=== PATIENT | female | born 1950 | race Caucasian/White ===

== ENCOUNTER → 2018-02-15 09:47 | Outpatient (CLI) | payer MEDICARE, SELFPAY ==
--- NOTE | 2018-02-15 | DI.RAD.S_ITS ---
This blank DEXA report has been sent in error by the PACS system. The correct and complete report will be forthcoming in 1-2 days. Thank you for your patience and understanding. Dictated by: Kun Warren M.D. on 02/15/2018 at 11:57 Approved by: Kun Warren M.D. on 02/15/2018 at 11:57
== END ==
DX: M85.88 Other specified disorders of bone density and structure, other site (principal); E07.9 Disorder of thyroid, unspecified; Z78.0 Asymptomatic menopausal state
CPT/HCPCS: 77080

== ENCOUNTER → 2018-02-25 09:22 | Outpatient (CLI) | payer MEDICARE, SELFPAY ==
--- NOTE | 2018-02-25 09:24 | DI.MG.S_ITS ---
BILATERAL DIGITAL SCREENING MAMMOGRAM 3D/2D WITH CAD: 02/25/2018 CLINICAL: Routine screening. Family history of breast cancer. Comparison is made to exams dated: 11/02/2012 mammogram, 05/10/2014 mammogram, 07/16/2011 mammogram, 06/01/2010 mammogram, 05/30/2009 mammogram, and 05/24/2008 mammogram - [facility]. There are scattered fibroglandular elements in both breasts. Current study was also evaluated with a Computer Aided Detection (CAD) system. There is a new 0.6 cm oval mass in the left breast central to the nipple anterior depth, which may be more lateral toward the 3 o'clock position on LCC view. No other significant masses, calcifications, or other findings are seen in either breast. IMPRESSION: INCOMPLETE: NEEDS ADDITIONAL IMAGING EVALUATION The new 0.6 cm oval mass in the left breast is indeterminate. Additional views with possible ultrasound are recommended. This exam was interpreted at Station ID: [id number]. NOTE: For mammograms, a report in lay terms will be sent to the patient. Approximately 15% of breast malignancies will not be visualized mammographically. In the management of a palpable breast mass, a negative mammogram must not discourage biopsy of a clinically suspicious lesion. Electronically Signed By: Jai Claros M.D. ecl/:03/01/2018 18:31:19 letter sent: Additional Imaging Needed ACR BI-RADS Category 0: Incomplete [id number]
== END ==
DX: Z12.31 Encounter for screening mammogram for malignant neoplasm of breast (principal); Z80.3 Family history of malignant neoplasm of breast
CPT/HCPCS: 77063; 77067

== ENCOUNTER → 2018-03-16 14:39 | Outpatient (CLI) | payer OTHER, SELFPAY ==
--- NOTE | 2018-03-16 12:00 | DI.US.S_ITS ---
Patient Name: TONY PANDEY date: 1950 Sex: F Attending Physician: Kevin Champagne Indications: Date: 03/16/2018 16:38 At the request of: DOMONIQUE CHAMPAGNE Procedure: US breast LT limited ULTRASOUND OF LEFT BREAST: 03/16/2018 CLINICAL: Patient returns for additional imaging over a suspected mass in the left breast. Comparison is made to exams dated: 03/16/2018 mammogram, 02/25/2018 mammogram, and 05/10/2014 mammogram - [facility]. Color flow ultrasound of the left breast was performed. Jimenez scale images of the real-time examination were reviewed. There is an oval mass with a circumscribed margin in the left breast at 3 o' clock anterior depth 3 cm from the nipple. This oval mass displays internal echoes. This correlates with mammography findings. Color flow imaging demonstrates that there is no vascularity present. IMPRESSION: PROBABLY BENIGN The oval mass in the left breast likely represents clustered cysts, a complicated cyst, or focal ductal dilatation and is probably benign. A follow-up mammogram and an ultrasound in 6 months is recommended to demonstrate stability. This exam was interpreted at Station ID: [id number]. Electronically Signed By: Lázaro Ford M.D. aty/:03/16/2018 17:15:23 letter sent: Followup Recommended Ultrasound BI-RADS: 3 Probably benign
--- NOTE | 2018-03-16 13:15 | DI.MG.S_ITS ---
Patient Name: TONY PANDEY date: 1950 Sex: F Attending Physician: Kevin Champagne Indications: Date: 03/16/2018 14:56 At the request of: DOMONIQUE CHAMPAGNE Procedure: MM special view LT UNILATERAL LEFT DIGITAL DIAGNOSTIC MAMMOGRAM 3D/2D WITH ADDITIONAL VIEWS: 03/16/2018 CLINICAL: Additional evaluation requested from prior study. Family history of breast cancer. No history of abnormal nipple discharge. Comparison is made to exams dated: 02/25/2018 mammogram, 05/10/2014 mammogram, and 11/02/2012 mammogram - [facility]. There are scattered fibroglandular elements in left breast. There is an oval equal density mass with a circumscribed margin in the left breast central to the nipple anterior depth 4 cm from the nipple. This is seen in additional views. This is not significantly changed. No other significant masses or calcifications are seen in the breast. IMPRESSION: INCOMPLETE: NEEDS ADDITIONAL IMAGING EVALUATION The oval equal density mass in the left breast is indeterminate. An ultrasound is recommended and will follow immediately after this exam. This exam was interpreted at Station ID: [id number]. NOTE: For mammograms, a report in lay terms will be sent to the patient. Approximately 15% of breast malignancies will not be visualized mammographically. In the management of a palpable breast mass, a negative mammogram must not discourage biopsy of a clinically suspicious lesion. Electronically Signed By: Lázaro Ford M.D. aty/:03/16/2018 17:09:12 ACR BI-RADS Category 0: Incomplete [id number]
== END ==
DX: R92.8 Other abnormal and inconclusive findings on diagnostic imaging of breast (principal); N63.20 Unspecified lump in the left breast, unspecified quadrant; Z80.3 Family history of malignant neoplasm of breast
CPT/HCPCS: 76642; 77065; G0279

== ENCOUNTER 2018-06-20 12:22 | Emergency (ER) | payer OTHER, SELFPAY ==
[2018-06-20 12:30] VITALS: BP 139/70; PULSE 89; RESP 18; TEMP 37.2; O2SAT 93
--- NOTE | 2018-06-20 12:38 | ED.UPPEXIN ---
HPI - Extremity Injury (Upper) <Randee Celaya PA-C - Last Filed: 06/20/18 19:31> General Chief Complaint: Extremity Injury, Upper Stated Complaint: FALL LEFT ARM INJURY Time Seen by Provider: 06/20/18 12:50 Source: patient Mode of arrival: ambulatory Limitations: physical limitation History of Present Illness HPI narrative: This 68-year-old female tripped over a metal plate in the street and fell on to her outstretched hands to, taking most of the brunt of the impact on the right hand. She is right-handed. She states that she has pain from the shoulder down and cannot move shoulder secondary to pain. she does not have any numbness. She denies hitting her head or any other injury, states she knew what had happened right away and had pain right away. Related Data Home Medications Medication Instructions Recorded Confirmed levothyroxine [Synthroid] 100 mcg PO DAILY #0 10/12/08 06/20/18 bupropion HCl 150 mg PO DAILY 06/20/18 06/20/18 lisinopril 20 mg PO DAILY 06/20/18 06/20/18 simvastatin 20 mg PO QPM 06/20/18 06/20/18 Previous Rx's Medication Instructions Recorded hydrocodone-acetaminophen [[place]] 1 tab PO Q4-6H PRN #14 tab 06/20/18 Allergies Allergy/AdvReac Type Severity Reaction Status Date / Time No Known Drug Allergies Allergy Verified 06/20/18 12:32 Review of Systems <Randee Celaya PA-C - Last Filed: 06/20/18 19:31> Review of Systems ROS Unobtainable: All systems reviewed & are unremarkable except as noted in HPI and below PFSH <Randee Celaya PA-C - Last Filed: 06/20/18 19:31> Medical History (Updated 06/20/18 @ 14:38 by Randee Celaya PA-C) No pertinent family history (Chronic) Depression (Chronic) Hypothyroidism (Chronic) HTN (hypertension) (Chronic) Hyperlipidemia (Chronic) Surgical History (Updated 06/20/18 @ 13:01 by Randee Celaya PA-C) No pertinent past surgical history (Chronic) Social History Smoking Status: Never smoker Social History Smoking Status: Never smoker Exam <Randee Celaya PA-C - Last Filed: 06/20/18 19:31> Narrative Exam Narrative: GENERAL APPEARANCE: Patient sitting comfortably, in no distress. LUNGS: Clear to auscultation bilaterally. HEART: Rate and rhythm regular without murmur, normal S1 and S2, no S3 or S4. MUSCULOSKELETAL: Patient sits with the right upper extremity abducted holding her elbow. Shoulders appear symmetric. she is exquisitely over the collarbone and right lateral shoulder to the proximal border of the humerus. No tenderness over the remainder of the upper arm or elbow. No tenderness over the proximal forearm. Moderate tenderness over the distal forearm and mild tenderness over the radial side of the wrist. She will not move the shoulder secondary to tenderness. She is able to pronate and supinate the elbow and will flex slightly. She is able to move the wrist and fingers. NEUROVASCULAR: Right hand fingers are warm and pink with brisk cap refill, sensation grossly intact DERMATOLOGIC: No ecchymoses or abrasions over the right upper extremity or shoulder Initial Vital Signs Initial Vital Signs: Vital Signs Temperature 98.9 F 06/20/18 12:30 Pulse Rate 89 06/20/18 12:30 Respiratory Rate 18 06/20/18 12:30 Blood Pressure 139/70 06/20/18 12:30 Pulse Oximetry 93 06/20/18 12:30 <Mel Pastrana DO - Last Filed: 06/23/18 20:42> Initial Vital Signs Initial Vital Signs: Vital Signs Temperature 98.9 F 06/20/18 12:30 Pulse Rate 89 06/20/18 12:30 Respiratory Rate 18 06/20/18 12:30 Blood Pressure 139/70 06/20/18 12:30 Pulse Oximetry 93 06/20/18 12:30 Course <Randee Celaya PA-C - Last Filed: 06/20/18 19:31> Additional Information: I spoke with Dr. Berrios, on-call for Orthopedics. He evaluated x-rays and advised shoulder likely somewhat subluxed which is common with this type of fracture. He advised sling and follow-up with Orthopedics. Patient was given pain medication and advised to see PCP in a day or 2 to see if any changes need to be made there, continue the sling and she will call Orthopedics to schedule follow-up. Orders Ordered: Discontinued Medications Hydrocodone Bitart/Acetaminophen ([place] 5/325) 2 tab PO NOW ONE Stop: 06/20/18 12:51 Last Admin: 06/20/18 12:58 Dose: 2 tab Ibuprofen (Advil) 800 mg PO NOW ONE Stop: 06/20/18 12:51 Last Admin: 06/20/18 12:59 Dose: 800 mg Vital Signs - 8 hr 06/20/18 12:30 06/20/18 13:20 06/20/18 14:08 Temperature 98.9 F Pulse Rate 89 70 Pulse Rate [Right Radial] 78 Respiratory Rate 18 16 Blood Pressure 139/70 Blood Pressure [Left Arm] 157/101 H Pulse Oximetry 93 98 <Mel Pastrana DO - Last Filed: 06/23/18 20:42> Orders Ordered: Discontinued Medications Hydrocodone Bitart/Acetaminophen ([place] 5/325) 2 tab PO NOW ONE Stop: 06/20/18 12:51 Last Admin: 06/20/18 12:58 Dose: 2 tab Ibuprofen (Advil) 800 mg PO NOW ONE Stop: 06/20/18 12:51 Last Admin: 06/20/18 12:59 Dose: 800 mg Vital Signs - 8 hr 06/20/18 12:30 06/20/18 13:20 06/20/18 14:08 Temperature 98.9 F Pulse Rate 89 70 Pulse Rate [Right Radial] 78 Respiratory Rate 18 16 Blood Pressure 139/70 Blood Pressure [Left Arm] 157/101 H Pulse Oximetry 93 98 MDM - Extremity Injury (Upper) <Randee Celaya PA-C - Last Filed: 06/20/18 19:31> Imaging Data wrist: Radiologist's impression: 15 Randee Celaya PA-C Find Patient Imaging Tamie Little L 68 F 1950 ACTIVITY DATE EXAM STATUS AUTHOR 06/20/18 12:57 Signed Esther John 06/20/18 12:[address] [address] XRay Report Signed Patient: Tamie Little LMR#: [id number] : 3Acct:[id number] Age/Sex: 68 / FDate of Service: 06/20/18 Loc: ED Accession Number: [id number] Procedure: XR wrist RT 2V Ordering Provider: Randee Celaya P.A-C PROCEDURE: XR WRIST RT 2V INDICATIONS: fall, pain, more lateral TECHNIQUE: 2 views of the wrist were acquired. COMPARISON: None. FINDINGS: Bones: No displaced fracture or dislocation is appreciated involving the osseous structures of the right wrist. There are mild to moderate degenerative changes involving the basal joint of the thumb. Bony alignment of the wrist is within normal limits. Soft tissues: No suspicious soft tissue calcifications. Soft tissue swelling about the wrist may be present. IMPRESSION: No displaced fractures of the wrist are evident. Dictated by: Juan David Williamson M.D. on 06/20/2018 at 12:50 Approved by: Juan David Williamson M.D. on 06/20/2018 at 12:51 Discharge Plan Departure Patient Disposition: Home Clinical Impression: Fracture, humerus closed Qualifiers: Encounter type: initial encounter Humerus Location: surgical neck Fracture morphology: unspecified fracture morphology Fracture alignment: displaced Laterality: right Qualified Code(s): S42.211A - Unspecified displaced fracture of surgical neck of right humerus, initial encounter for closed fracture Discharge Date/Time: 06/20/18 14:47 Interventions: ED Discharge Assessment Last Done: 06/20/18 14:46 Instructions: DI for Humeral Fracture Activity Restrictions/Additional Instructions: You have a break your shoulder where the the ball and socket connect to the upper arm bone (the humerus). The orthopedic doctor on-call looked at your x-rays and advised that many times these heal and align reasonably well without surgery. He would like you to keep the arm in a sling as we gave you, then they want to see you in a week to 10 days to recheck. Please call his office either later this afternoon or 1st thing tomorrow morning and let them know Dr. Berrios reviewed your films from the emergency room and wants you to set up a follow-up for shoulder fracture. You should return to the ED right away if you have acutely worsening symptoms, i.e. severe pain, difficulty with sensation or weakness or color changes in your hand and fingers suddenly. Otherwise, please continue ibuprofen for pain as you would normally take at home, every 8 hours, and you can also take the prescription hydrocodone/acetaminophen on top of this the as needed. Remember that the the hydrocodone/acetaminophen can make you sleepy and not to drive when you take it. Please follow-up with your PCP in the next day or 2 to see how that is working for you and whether you need any changes. Prescriptions: New hydrocodone-acetaminophen [[place]] 5-325 mg tablet 1 tab PO Q4-6H PRN (Reason: acute shoulder fracture pain) Qty: 14 RF: 0 No Action levothyroxine [Synthroid] 100 mcg Tablet 100 mcg PO DAILY Qty: 0 RF: 0 lisinopril 20 mg tablet 20 mg PO DAILY RF: 0 simvastatin 20 mg tablet 20 mg PO QPM RF: 0 bupropion HCl 150 mg tablet extended release 24 hr 150 mg PO DAILY RF: 0 Referrals: Jill Renee PALiamC [Primary Care Provider] - Louis Berrios MD [Physician] - <Mel Pastrana DO - Last Filed: 06/23/18 20:42> Cosign ED Attending Cosleslyeature Attestation: I was immediately available in the department for consultation. This documentation has been reviewed and I agree with assessment and plan. Supervised by Mel Pastrana DO
--- NOTE | 2018-06-20 12:41 | ED_ITS ---
HPI - Extremity Injury (Upper) <Randee Celaya PA-C - Last Filed: 06/20/18 19:31> General Chief Complaint: Extremity Injury, Upper Stated Complaint: FALL LEFT ARM INJURY Time Seen by Provider: 06/20/18 12:50 Source: patient Mode of arrival: ambulatory Limitations: physical limitation History of Present Illness HPI narrative: This 68-year-old female tripped over a metal plate in the street and fell on to her outstretched hands to, taking most of the brunt of the impact on the right hand. She is right-handed. She states that she has pain from the shoulder down and cannot move shoulder secondary to pain. she does not have any numbness. She denies hitting her head or any other injury, states she knew what had happened right away and had pain right away. Related Data Home Medications Medication Instructions Recorded Confirmed levothyroxine [Synthroid] 100 mcg PO DAILY #0 10/12/08 06/20/18 bupropion HCl 150 mg PO DAILY 06/20/18 06/20/18 lisinopril 20 mg PO DAILY 06/20/18 06/20/18 simvastatin 20 mg PO QPM 06/20/18 06/20/18 Previous Rx's Medication Instructions Recorded hydrocodone-acetaminophen [[place]] 1 tab PO Q4-6H PRN #14 tab 06/20/18 Allergies Allergy/AdvReac Type Severity Reaction Status Date / Time No Known Drug Allergies Allergy Verified 06/20/18 12:32 Review of Systems <Randee Celaya PA-C - Last Filed: 06/20/18 19:31> Review of Systems ROS Unobtainable: All systems reviewed & are unremarkable except as noted in HPI and below PFSH <Randee Celaya PA-C - Last Filed: 06/20/18 19:31> Medical History (Updated 06/20/18 @ 14:38 by Randee Celaya PA-C) No pertinent family history (Chronic) Depression (Chronic) Hypothyroidism (Chronic) HTN (hypertension) (Chronic) Hyperlipidemia (Chronic) Surgical History (Updated 06/20/18 @ 13:01 by Randee Celaya PA-C) No pertinent past surgical history (Chronic) Social History Smoking Status: Never smoker Social History Smoking Status: Never smoker Exam <Randee Celaya PA-C - Last Filed: 06/20/18 19:31> Narrative Exam Narrative: GENERAL APPEARANCE: Patient sitting comfortably, in no distress. LUNGS: Clear to auscultation bilaterally. HEART: Rate and rhythm regular without murmur, normal S1 and S2, no S3 or S4. MUSCULOSKELETAL: Patient sits with the right upper extremity abducted holding her elbow. Shoulders appear symmetric. she is exquisitely over the collarbone and right lateral shoulder to the proximal border of the humerus. No tenderness over the remainder of the upper arm or elbow. No tenderness over the proximal forearm. Moderate tenderness over the distal forearm and mild tenderness over the radial side of the wrist. She will not move the shoulder secondary to tenderness. She is able to pronate and supinate the elbow and will flex slightly. She is able to move the wrist and fingers. NEUROVASCULAR: Right hand fingers are warm and pink with brisk cap refill, sensation grossly intact DERMATOLOGIC: No ecchymoses or abrasions over the right upper extremity or shoulder Initial Vital Signs Initial Vital Signs: Vital Signs Temperature 98.9 F 06/20/18 12:30 Pulse Rate 89 06/20/18 12:30 Respiratory Rate 18 06/20/18 12:30 Blood Pressure 139/70 06/20/18 12:30 Pulse Oximetry 93 06/20/18 12:30 <Mel Pastrana DO - Last Filed: 06/23/18 20:42> Initial Vital Signs Initial Vital Signs: Vital Signs Temperature 98.9 F 06/20/18 12:30 Pulse Rate 89 06/20/18 12:30 Respiratory Rate 18 06/20/18 12:30 Blood Pressure 139/70 06/20/18 12:30 Pulse Oximetry 93 06/20/18 12:30 Course <Randee Celaya PA-C - Last Filed: 06/20/18 19:31> Additional Information: I spoke with Dr. Berrios, on-call for Orthopedics. He evaluated x-rays and advised shoulder likely somewhat subluxed which is common with this type of fracture. He advised sling and follow-up with Orthopedics. Patient was given pain medication and advised to see PCP in a day or 2 to see if any changes need to be made there, continue the sling and she will call Orthopedics to schedule follow-up. Orders Ordered: Discontinued Medications Hydrocodone Bitart/Acetaminophen ([place] 5/325) 2 tab PO NOW ONE Stop: 06/20/18 12:51 Last Admin: 06/20/18 12:58 Dose: 2 tab Ibuprofen (Advil) 800 mg PO NOW ONE Stop: 06/20/18 12:51 Last Admin: 06/20/18 12:59 Dose: 800 mg Vital Signs - 8 hr 06/20/18 12:30 06/20/18 13:20 06/20/18 14:08 Temperature 98.9 F Pulse Rate 89 70 Pulse Rate [Right Radial] 78 Respiratory Rate 18 16 Blood Pressure 139/70 Blood Pressure [Left Arm] 157/101 H Pulse Oximetry 93 98 <Mel Pastrana DO - Last Filed: 06/23/18 20:42> Orders Ordered: Discontinued Medications Hydrocodone Bitart/Acetaminophen ([place] 5/325) 2 tab PO NOW ONE Stop: 06/20/18 12:51 Last Admin: 06/20/18 12:58 Dose: 2 tab Ibuprofen (Advil) 800 mg PO NOW ONE Stop: 06/20/18 12:51 Last Admin: 06/20/18 12:59 Dose: 800 mg Vital Signs - 8 hr 06/20/18 12:30 06/20/18 13:20 06/20/18 14:08 Temperature 98.9 F Pulse Rate 89 70 Pulse Rate [Right Radial] 78 Respiratory Rate 18 16 Blood Pressure 139/70 Blood Pressure [Left Arm] 157/101 H Pulse Oximetry 93 98 MDM - Extremity Injury (Upper) <Randee Celaya PA-C - Last Filed: 06/20/18 19:31> Imaging Data wrist: Radiologist's impression: 15 Randee Celaya PA-C Find Patient Imaging Tamie Little L 68 F 1950 ACTIVITY DATE EXAM STATUS AUTHOR 06/20/18 12:57 Signed Esther John 06/20/18 12:[address] [address] XRay Report Signed Patient: Tamie Little LMR#: [id number] : 3Acct:[id number] Age/Sex: 68 / FDate of Service: 06/20/18 Loc: ED Accession Number: [id number] Procedure: XR wrist RT 2V Ordering Provider: Randee Celaya P.A-C PROCEDURE: XR WRIST RT 2V INDICATIONS: fall, pain, more lateral TECHNIQUE: 2 views of the wrist were acquired. COMPARISON: None. FINDINGS: Bones: No displaced fracture or dislocation is appreciated involving the osseous structures of the right wrist. There are mild to moderate degenerative changes involving the basal joint of the thumb. Bony alignment of the wrist is within normal limits. Soft tissues: No suspicious soft tissue calcifications. Soft tissue swelling about the wrist may be present. IMPRESSION: No displaced fractures of the wrist are evident. Dictated by: Juan David Williamson M.D. on 06/20/2018 at 12:50 Approved by: Juan David Williamson M.D. on 06/20/2018 at 12:51 Discharge Plan Departure Patient Disposition: Home Clinical Impression: Fracture, humerus closed Qualifiers: Encounter type: initial encounter Humerus Location: surgical neck Fracture morphology: unspecified fracture morphology Fracture alignment: displaced Laterality: right Qualified Code(s): S42.211A - Unspecified displaced fracture of surgical neck of right humerus, initial encounter for closed fracture Discharge Date/Time: 06/20/18 14:47 Interventions: ED Discharge Assessment Last Done: 06/20/18 14:46 Instructions: DI for Humeral Fracture Activity Restrictions/Additional Instructions: You have a break your shoulder where the the ball and socket connect to the upper arm bone (the humerus). The orthopedic doctor on-call looked at your x- rays and advised that many times these heal and align reasonably well without surgery. He would like you to keep the arm in a sling as we gave you, then they want to see you in a week to 10 days to recheck. Please call his office either later this afternoon or 1st thing tomorrow morning and let them know Dr. Berrios reviewed your films from the emergency room and wants you to set up a follow-up for shoulder fracture. You should return to the ED right away if you have acutely worsening symptoms, i.e. severe pain, difficulty with sensation or weakness or color changes in your hand and fingers suddenly. Otherwise, please continue ibuprofen for pain as you would normally take at home, every 8 hours, and you can also take the prescription hydrocodone/acetaminophen on top of this the as needed. Remember that the the hydrocodone/acetaminophen can make you sleepy and not to drive when you take it. Please follow-up with your PCP in the next day or 2 to see how that is working for you and whether you need any changes. Prescriptions: New hydrocodone-acetaminophen [[place]] 5-325 mg tablet 1 tab PO Q4-6H PRN (Reason: acute shoulder fracture pain) Qty: 14 RF: 0 No Action levothyroxine [Synthroid] 100 mcg Tablet 100 mcg PO DAILY Qty: 0 RF: 0 lisinopril 20 mg tablet 20 mg PO DAILY RF: 0 simvastatin 20 mg tablet 20 mg PO QPM RF: 0 bupropion HCl 150 mg tablet extended release 24 hr 150 mg PO DAILY RF: 0 Referrals: Jill Renee PALiamC [Primary Care Provider] - Louis Berrios MD [Physician] - <Mel Pastrana DO - Last Filed: 06/23/18 20:42> Cosign ED Attending Cosleslyeature Attestation: I was immediately available in the department for consultation. This documentation has been reviewed and I agree with assessment and plan. Supervised by Mel Pastrana DO
--- NOTE | 2018-06-20 12:57 | DI.RAD.S_ITS ---
PROCEDURE: XR WRIST RT 2V INDICATIONS: fall, pain, more lateral TECHNIQUE: 2 views of the wrist were acquired. COMPARISON: None. FINDINGS: Bones: No displaced fracture or dislocation is appreciated involving the osseous structures of the right wrist. There are mild to moderate degenerative changes involving the basal joint of the thumb. Bony alignment of the wrist is within normal limits. Soft tissues: No suspicious soft tissue calcifications. Soft tissue swelling about the wrist may be present. IMPRESSION: No displaced fractures of the wrist are evident. Dictated by: Juan David Williamson M.D. on 06/20/2018 at 12:50 Approved by: Juan David Williamson M.D. on 06/20/2018 at 12:51
--- NOTE | 2018-06-20 12:57 | DI.RAD.S_ITS ---
PROCEDURE: XR SHOULDER RT MIN 2V INDICATIONS: fall, pain TECHNIQUE: 3 views of the shoulder were acquired. COMPARISON: None. FINDINGS: Bones: There is a moderately displaced fracture of the humeral neck. Soft tissues: No suspicious soft tissue calcifications. IMPRESSION: Moderately displaced humeral neck fracture. Dictated by: Esther John M.D. on 06/20/2018 at 13:24 Approved by: Esther John M.D. on 06/20/2018 at 13:25
[2018-06-20] MEDS: HYDROCODONE/ACET 5/325 TABLET 2 TAB PO (12:58)
[2018-06-20] MEDS: IBUPROFEN 400 MG TABLET 800 MG PO (12:59)
[2018-06-20 13:20] VITALS: PULSE 78
--- NOTE | 2018-06-20 13:21 | PC.NURSE ---
Movement limited by pain, full grasp of hand.
[2018-06-20 14:08] VITALS: BP 157/101; PULSE 70; RESP 16; O2SAT 98
== END 2018-06-20 14:47 | disposition home or self-care (01) ==
PROVIDERS: Emergency Provider Internal Medicine
DX: S42.211A Unspecified displaced fracture of surgical neck of right humerus, initial encounter for closed fracture (principal); W19.XXXA Unspecified fall, initial encounter
CPT/HCPCS: 73030; 73100; 99282; 99283

== ENCOUNTER → 2018-08-02 11:51 | Outpatient (CLI) | payer OTHER, SELFPAY ==
--- NOTE | 2018-08-02 | DI.RAD.S_ITS ---
PROCEDURE: XR CHEST 2V INDICATIONS: COUGH X 2 MONTHS TECHNIQUE: 2 views of the chest were acquired. COMPARISON: None. FINDINGS: Surgical changes and devices: None. Lungs and pleura: Lungs are clear. No pleural effusions or pneumothorax. Mediastinum: Mediastinal contours are normal. Heart size is normal. Bones and chest wall: No suspicious bony abnormalities. Soft tissues appear unremarkable. IMPRESSION: Normal for age, source of current cough symptoms is not seen. Dictated by: Luis Magallanes M.D. on 08/02/2018 at 12:19 Approved by: Luis Magallanes M.D. on 08/02/2018 at 12:19
== END ==
DX: R05 Cough (principal)
CPT/HCPCS: 71046

== ENCOUNTER → 2018-10-03 09:10 | Outpatient (CLI) | payer OTHER, SELFPAY ==
[2018-10-03 10:36] LABS: BUN Creatinine Ratio 21.4 (6-22); Blood Urea Nitrogen 15 mg/dL (7-17); Calcium 9.4 mg/dL (8.4-10.2); Carbon Dioxide 24 mmol/L (22-32); Chloride 103 mmol/L (98-107); Estimated Glomerular Filt Rate > 60.0 mL/min (>60); Glucose 94 mg/dL (80-110); HEMOLYSIS < 15 (0-50); Potassium 4.4 mmol/L (3.4-5.1); Sodium 139 mmol/L (137-145)
== END ==
PROVIDERS: Visit Provider Nurse Practitioner
DX: I10 Essential (primary) hypertension (principal)
CPT/HCPCS: 36415; 80048

== ENCOUNTER → 2018-11-08 09:00 | Outpatient (CLI) | payer OTHER, SELFPAY ==
--- NOTE | 2018-11-08 | DI.US.S_ITS ---
LIMITED ULTRASOUND OF LEFT BREAST: 11/08/2018 CLINICAL: 6 month follow-up. Comparison is made to exams dated: 11/08/2018 mammogram, 03/16/2018 ultrasound, 03/16/2018 mammogram, 02/25/2018 mammogram, 05/10/2014 mammogram, and 11/02/2012 mammogram - [facility]. Real-time ultrasound of the left breast 12-4 o'clock region was performed. Jimenez scale images of the real-time examination were reviewed. There is a 0.8 cm x 0.8 cm x 0.5 cm minimally complicated cyst with a septated internal wall in the left breast at 4 o'clock anterior depth. This abnormality is increased in size. There is an adjacent 5 mm complicated cyst which is stable. A new cluster of microcysts is seen at the 12:00 position measuring 8 mm in greatest dimention. This corresponds to the mammographic finding. IMPRESSION: PROBABLY BENIGN The 0.8 cm x 0.8 cm x 0.5 cm minimally complicated cyst in the left breast has enlarged but is probably benign. Other adjacent tissue appears stable. New 12 :00 microcyst cluster corresponds to mammographic finding and may indicate apocrine metaplasia. Follow-up mammogram and ultrasound in 6 months is recommended. Findings and recommendations were conveyed to the patient at time of exam. This exam was interpreted at Station ID: [id number]. Electronically Signed By: Rose garcia/:11/08/2018 16:13:09 letter sent: Followup Recommended Ultrasound BI-RADS: 3 Probably benign
--- NOTE | 2018-11-08 | DI.MG.S_ITS ---
UNILATERAL LEFT DIGITAL DIAGNOSTIC MAMMOGRAM 3D/2D: 11/08/2018 CLINICAL: Patient returns for a 6 month follow up of the left breast. Comparison is made to exams dated: 03/16/2018 mammogram, 02/25/2018 mammogram, and 05/10/2014 mammogram - [facility]. There are scattered fibroglandular elements in left breast. There is an oval mass in the left breast at 4 o'clock anterior depth. This is seen in additional views. This is slightly increased in size. There also is a new oval focal asymmetry with an indistinct margin in the left breast at 12 o'clock posterior depth. This is seen in additional views. No other significant masses or calcifications are seen in the breast. IMPRESSION: INCOMPLETE: NEEDS ADDITIONAL IMAGING EVALUATION The oval mass in the left breast at 4 o'clock anterior depth has increased slightly in size and is indeterminate. An ultrasound for reassessment is recommended. The new oval focal asymmetry in the left breast at 12 o'clock posterior depth is indeterminate. An ultrasound is recommended. This was performed immediately following this exam. This exam was interpreted at Station ID: [id number]. NOTE: For mammograms, a report in lay terms will be sent to the patient. Approximately 15% of breast malignancies will not be visualized mammographically. In the management of a palpable breast mass, a negative mammogram must not discourage biopsy of a clinically suspicious lesion. Electronically Signed By: Rose garcia/:11/08/2018 16:03:37 ACR BI-RADS Category 0: Incomplete [id number]
== END ==
DX: R92.8 Other abnormal and inconclusive findings on diagnostic imaging of breast (principal); N60.02 Solitary cyst of left breast; N64.89 Other specified disorders of breast
CPT/HCPCS: 76642; 77065; G0279

== ENCOUNTER → 2020-01-25 07:26 | Outpatient (CLI) | payer OTHER, SELFPAY ==
[2020-01-25 09:30] LABS: Hematocrit 38.3 % (36-46); Hemoglobin 12.9 g/dL (12.0-16.0); Mean Corpuscular HGB Conc 33.6 % (30-36); Mean Corpuscular Hemoglobin 30.2 PG (26-34); Mean Corpuscular Volume 89.7 fL (80-100); Platelet Count 312 X10^3/uL (150-400); Red Blood Cell Count 4.27 X10^6/uL (4.0-5.2); Red Cell Distribution Width 12.8 % (11.6-14.8); White Blood Cell Count 6.4 X10^3/uL (4.5-11.0)
[2020-01-25 09:54] LABS: BUN Creatinine Ratio 16.4 (6-22); Blood Urea Nitrogen 12 mg/dL (7-17); Calcium 9.2 mg/dL (8.4-10.2); Carbon Dioxide 31 mmol/L (22-32); Chloride 103 mmol/L (98-107); Cholesterol 162 mg/dL (140-199); Estimated Glomerular Filt Rate > 60.0 mL/min (>60); Glucose 101 mg/dL (80-110); HDL Cholesterol 43 mg/dL (40-60); HEMOLYSIS < 15 (0-50); LDL Cholesterol Calculated 91 mg/dL (<100); Potassium 3.6 mmol/L (3.4-5.1); Sodium 140 mmol/L (137-145); Triglycerides 141 mg/dL (35-150)
[2020-01-25 10:10] LABS: Free T4, Direct Thyroxine 1.24 ng/dL (0.78-2.19)
[2020-01-25 10:24] LABS: Thyroid Stimulating Hormone 8.37 uIU/mL (0.47-4.68)
== END ==
DX: E78.5 Hyperlipidemia, unspecified (principal); I10 Essential (primary) hypertension; E03.8 Other specified hypothyroidism; E06.3 Autoimmune thyroiditis
CPT/HCPCS: 36415; 80048; 80061; 84439; 84443; 85027

== ENCOUNTER → 2020-07-14 11:36 | Outpatient (CLI) | payer OTHER, SELFPAY ==
[2020-07-14 12:48] LABS: Free T4, Direct Thyroxine 1.33 ng/dL (0.78-2.19)
== END ==
PROVIDERS: Referring Provider Family Medicine; Visit Provider Family Medicine
DX: I10 Essential (primary) hypertension (principal); E03.8 Other specified hypothyroidism; R06.3 Periodic breathing
CPT/HCPCS: 36415; 84439

== ENCOUNTER → 2020-08-28 14:35 | Outpatient (CLI) | payer OTHER, SELFPAY ==
[2020-08-28 16:38] LABS: Thyroid Stimulating Hormone 1.49 uIU/mL (0.47-4.68)
== END ==
PROVIDERS: Referring Provider Family Medicine; Visit Provider Family Medicine
DX: E03.8 Other specified hypothyroidism (principal); E06.3 Autoimmune thyroiditis
CPT/HCPCS: 36415; 84439; 84443

== ENCOUNTER → 2021-03-13 08:47 | Outpatient (CLI) | payer OTHER, SELFPAY ==
[2021-03-13 10:23] LABS: Add Manual Diff / Slide Review NO; Basophils Absolute Auto 100 /uL (0-100); Eosinophils Absolute Auto 300 /uL (0-450); Eosinophils Percent Auto 5.2 % (2-4); Hemoglobin 13.1 g/dL (12.0-16.0); Lymphocytes Absolute Auto 1800 /uL (1100-4500); Lymphocytes Percent Auto 27.7 % (25-40); Mean Corpuscular HGB Conc 33.6 % (30-36); Mean Corpuscular Hemoglobin 30.2 PG (26-34); Mean Corpuscular Volume 89.9 fL (80-100); Monocytes Absolute Auto 600 /uL (0-900); Monocytes Percent Auto 9.1 % (3-14); Neutrophils Absolute Auto 3600 /uL (1500-7000); Platelet Count 320 X10^3/uL (150-400); Red Blood Cell Count 4.34 X10^6/uL (4.0-5.2); Red Cell Distribution Width 12.3 % (11.6-14.8); White Blood Cell Count 6.4 X10^3/uL (4.5-11.0)
[2021-03-13 10:43] LABS: Alanine Aminotransferase 23 IU/L (<35); Albumin 4.2 g/dL (3.5-5.0); Albumin Globulin Ratio 1.2 (1.0-2.8); Alkaline Phosphatase 91 U/L (38-126); Aspartate Aminotransferase 33 IU/L (14-36); Bilirubin Total 0.4 mg/dL (0.2-1.3); Blood Urea Nitrogen 19 mg/dL (7-17); Calcium 9.7 mg/dL (8.4-10.2); Carbon Dioxide 28 mmol/L (22-32); Chloride 107 mmol/L (98-107); Cholesterol 177 mg/dL (140-199); Estimated Glomerular Filt Rate > 60.0 mL/min (>60); Globulin 3.5 g/dL (1.7-4.1); Glucose 94 mg/dL (80-110); HDL Cholesterol 47 mg/dL (40-60); HEMOLYSIS < 15 (0-50); LDL Cholesterol Calculated 103 mg/dL (<100); Potassium 3.9 mmol/L (3.4-5.1); Sodium 140 mmol/L (137-145); Total Protein 7.7 g/dL (6.3-8.2); Triglycerides 135 mg/dL (35-150)
[2021-03-13 11:10] LABS: TSH w/ Reflex to FT4 3.14 uIU/mL (0.47-4.68)
== END ==
PROVIDERS: Referring Provider Nurse Practitioner; Visit Provider Nurse Practitioner
DX: E06.3 Autoimmune thyroiditis (principal); E78.5 Hyperlipidemia, unspecified; E03.8 Other specified hypothyroidism
CPT/HCPCS: 36415; 80053; 80061; 84443; 85025

== ENCOUNTER → 2021-04-07 10:00 | Outpatient (CLI) | payer OTHER, SELFPAY | PROVIDERS: PCP Nurse Practitioner; Referring Provider Nurse Practitioner; Visit Provider Nurse Practitioner | DX: Z78.0 Asymptomatic menopausal state (principal); M85.88 Other specified disorders of bone density and structure, other site; E07.9 Disorder of thyroid, unspecified; E28.39 Other primary ovarian failure | CPT/HCPCS: 77080 ==

== ENCOUNTER → 2022-05-04 07:58 | Outpatient (CLI) | payer MEDICARE, SELFPAY ==
[2022-05-04 08:48] LABS: Hematocrit 39.1 % (36-46); Hemoglobin 13.2 g/dL (12.0-16.0); Mean Corpuscular HGB Conc 33.8 % (30-36); Mean Corpuscular Hemoglobin 30.1 PG (26-34); Platelet Count 300 X10^3/uL (150-400); Red Blood Cell Count 4.39 X10^6/uL (4.0-5.2); Red Cell Distribution Width 12.7 % (11.6-14.8); White Blood Cell Count 6.4 X10^3/uL (4.5-11.0)
[2022-05-04 08:57] LABS: Cholesterol 158 mg/dL (140-199); HDL Cholesterol 43 mg/dL (40-60); LDL Cholesterol Calculated 85 mg/dL (<100); Triglycerides 151 mg/dL (35-150)
== END ==
PROVIDERS: PCP Nurse Practitioner; Referring Provider Nurse Practitioner; Visit Provider Nurse Practitioner
DX: E78.5 Hyperlipidemia, unspecified (principal); E03.8 Other specified hypothyroidism; E06.3 Autoimmune thyroiditis; I10 Essential (primary) hypertension
CPT/HCPCS: 36415; 80061; 85027

== ENCOUNTER → 2024-07-24 07:45 | Outpatient (CLI) | payer MEDICARE, SELFPAY ==
--- NOTE | 2024-07-24 07:47 | DI.RAD.S_ITS ---
PROCEDURE: XR KNEE RT 3V INDICATIONS: Right knee pain TECHNIQUE: 3 views of the knee were acquired. COMPARISON: None. FINDINGS: Bones: There are no osseous abnormalities. Joints: Mild bilateral patellofemoral and medial tibial femoral degenerative change appreciated. Small effusion noted. Soft tissues: Normal IMPRESSION: Mild degeneration small effusion Dictated by: Tk Escamilla M.D. on 07/24/2024 at 10:39 Approved by: Tk Escamilla M.D. on 07/24/2024 at 10:39
[2024-07-24 09:08] LABS: Add Manual Diff / Slide Review NO; Basophils Absolute Auto 100 /uL (0-100); Basophils Percent Auto 1.3 % (0-2); Eosinophils Absolute Auto 300 /uL (0-450); Hematocrit 36.6 % (36-46); Hemoglobin 12.5 g/dL (12.0-16.0); Lymphocytes Absolute Auto 1900 /uL (1100-4500); Lymphocytes Percent Auto 35.8 % (25-40); Mean Corpuscular Hemoglobin 30.9 PG (26-34); Mean Corpuscular Volume 90.8 fL (80-100); Monocytes Absolute Auto 500 /uL (0-900); Monocytes Percent Auto 8.5 % (3-14); Neutrophils Absolute Auto 2600 /uL (1500-7000); Neutrophils Percent Auto 48.4 % (50-75); Platelet Count 296 X10^3/uL (150-400); Red Blood Cell Count 4.04 X10^6/uL (4.0-5.2); Red Cell Distribution Width 12.8 % (11.6-14.8); White Blood Cell Count 5.4 X10^3/uL (4.5-11.0)
[2024-07-24 09:27] LABS: Alanine Aminotransferase 47 IU/L (<35); Albumin 4.1 g/dL (3.5-5.0); Albumin Globulin Ratio 1.5 (1.0-2.8); Alkaline Phosphatase 76 U/L (38-126); Aspartate Aminotransferase 31 IU/L (14-36); BUN Creatinine Ratio 19.7 (6-22); Bilirubin Total 0.6 mg/dL (0.2-1.3); Blood Urea Nitrogen 15 mg/dL (7-17); Calcium 9.3 mg/dL (8.4-10.2); Carbon Dioxide 25 mmol/L (22-32); Chloride 106 mmol/L (98-107); Cholesterol 198 mg/dL (140-199); Estimated Glomerular Filt Rate > 60 mL/min (>60); Globulin 2.7 g/dL (1.7-4.1); Glucose 91 mg/dL (70-99); HDL Cholesterol 65 mg/dL (40-60); HEMOLYSIS < 15 (0-50); LDL Cholesterol Calculated 112 mg/dL (<100); Potassium 4.1 mmol/L (3.4-5.1); Sodium 138 mmol/L (137-145); Total Protein 6.8 g/dL (6.3-8.2); Triglycerides 107 mg/dL (35-150)
[2024-07-24 10:00] LABS: Thyroid Stimulating Hormone 0.454 uIU/mL (0.47-4.68)
== END ==
LOC: RAD 07:47
PROVIDERS: PCP Student in an Organized Health Care Education/Training Program; Referring Provider Student in an Organized Health Care Education/Training Program; Visit Provider Student in an Organized Health Care Education/Training Program
DX: M25.561 Pain in right knee (principal); I10 Essential (primary) hypertension; E78.5 Hyperlipidemia, unspecified; E03.9 Hypothyroidism, unspecified; M17.11 Unilateral primary osteoarthritis, right knee; M25.461 Effusion, right knee
CPT/HCPCS: 36415; 73562; 80053; 80061; 84443; 85025

== ENCOUNTER → 2024-11-13 11:52 | Outpatient (CLI) | payer MEDICARE, SELFPAY ==
--- NOTE | 2024-11-13 11:53 | DI.MG.S_ITS ---
US breast LT limited, MM diagnostic mammo unilat LT: 11/13/2024 BI-RADS: 2 CLINICAL: 74-year old female for left diagnostic mammogram and left diagnostic breast ultrasound that is a recall from screening on 10/30/2024. Tyrer-Cuzick lifetime risk of 2.9%. No personal or first-degree family history of breast cancer. Current reported family history of breast cancer: maternal aunt. History of ovarian cancer in one first-degree relative. PRIOR EXAMS Mammogram(s): 10/30/2024, 2019, 03/16/2018, 02/25/2018. MAMMOGRAPHY TECHNIQUE: 2D and 3D (tomosynthesis) digital mammographic views obtained, with additional images as needed for full coverage. Current study was also evaluated with a Computer Aided Detection (CAD) system. ULTRASOUND TECHNIQUE: TARGETED Left Breast Ultrasound: Real-time ultrasound exam was performed focused to area of clinical and/or imaging concern. Real-time cox scale and color doppler imaging of the area of clinical interest was performed with image documentation. DENSITY Left: B. There are scattered areas of fibroglandular density. MAMMOGRAPHY FINDINGS Left (finding-1): Upper Outer Quadrant: The previously seen focal asymmetry is less conspicuous with additional views, and appears similar compared to the prior studies dating back to at least 2019. ULTRASOUND FINDINGS Left (finding-1): Upper Outer at 1:00, 5 cm from nipple, measuring 0.6 x 0.4 x 0.5 cm: There are clustered microcysts. This may correlate with the mammographic finding. IMPRESSION: Left * No evidence of malignancy with benign findings. RECOMMENDATIONS Bilateral * Annual screening mammography. COMMENTS: Findings and recommendations were conveyed to the patient during today's evaluation. OVERALL ASSESSMENT CATEGORY BI-RADS-2: Benign. The [employer] recommends annual screening mammography beginning at age 40 for women with average risk of breast cancer. ELECTRONICALLY SIGNED: Tiki Cristobal M.D. on 11/13/2024 at 04:22:21 PM PT Interpreting Station ID: [id number]
== END ==
LOC: MAMMO 11:52
PROVIDERS: PCP Student in an Organized Health Care Education/Training Program; Referring Provider Student in an Organized Health Care Education/Training Program; Visit Provider Student in an Organized Health Care Education/Training Program
DX: R92.8 Other abnormal and inconclusive findings on diagnostic imaging of breast (principal); N64.89 Other specified disorders of breast; Z80.3 Family history of malignant neoplasm of breast; Z80.41 Family history of malignant neoplasm of ovary
CPT/HCPCS: 76642; 77065; G0279